=== PATIENT | male | born 1960 | race Two or more races ===

== ENCOUNTER 2019-07-03 09:38 | Emergency (ER) | payer MEDICARE, MEDICAID ==
[~2019-07-03] VITALS: Ht 165.1 cm; Wt 67.1 kg
--- NOTE | 2019-07-03 10:18 | Emergency Room Report ---
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 from previous diabetes and renal disease Denies any vomiting or diarrhea denies any chest pain or shortness of breath Allergies: Coded Allergies: No Known Allergies (Unverified , 07/03/19) Patient History Past Medical History: see triage record Reviewed Nursing Documentation: PMH: Agreed; PSxH: Agreed Nursing Documentation-PMH Hx Hypertension: Yes Hx Diabetes: Yes Hx Dialysis: Yes - , , Wed Review of Systems All Other Systems: negative except mentioned in HPI Physical Exam Vital Signs Date Time Temp Pulse Resp B/P (MAP) Pulse Ox O2 Delivery O2 Flow Rate FiO2 07/03/19 09:59 98.2 77 18 175/91 (119) 99 Room Air Sp02 EP Interpretation: reviewed, normal General Appearance: no apparent distress Head: normocephalic, atraumatic Eyes: bilateral eye PERRL, bilateral eye EOMI ENT: hearing grossly normal, EOM grossly intact Neck: supple Respiratory: lungs clear, no respiratory distress, no retraction Cardiovascular #1: regular rate, rhythm Gastrointestinal: non tender, soft Musculoskeletal: other - Bilateral lower extremity amputations multiple digit amputations as well Neurologic: alert, oriented x3 Psychiatric: normal inspection Skin: no rash Lymphatic: no adenopathy Medical Decision Making Diagnostic Impression: Primary Impression: Symptomatic anemia Additional Impression: blood transion ER Course Given the history exam and presentation patient had extensive blood work initiated hemoglobin level is at 7.1 Patient reports that he has been having some dizziness and weakness Given his complaints blood transfusion is ordered Patient has had multiple transfusions in the past at this time hemodynamically stable Patient will have transfusion via the emergency room and disposition home with close outpatient follow-up with property master Labs Test 07/03/19 10:45 White Blood Count 9.2 K/UL (4.8-10.8) Red Blood Count 1.84 M/UL (4.70-6.10) Hemoglobin 7.1 G/DL (14.2-18.0) Hematocrit 20.6 % (42.0-52.0) Mean Corpuscular Volume 112 FL (80-99) Mean Corpuscular Hemoglobin 38.4 PG (27.0-31.0) Mean Corpuscular Hemoglobin Concent 34.4 G/DL (32.0-36.0) Red Cell Distribution Width 14.7 % (11.6-14.8) Platelet Count 142 K/UL (150-450) Mean Platelet Volume 7.1 FL (6.5-10.1) Neutrophils (%) (Auto) % (45.0-75.0) Lymphocytes (%) (Auto) % (20.0-45.0) Monocytes (%) (Auto) % (1.0-10.0) Eosinophils (%) (Auto) % (0.0-3.0) Basophils (%) (Auto) % (0.0-2.0) Sodium Level 137 MMOL/L (136-145) Potassium Level 4.9 MMOL/L (3.5-5.1) Chloride Level 98 MMOL/L (98-107) Carbon Dioxide Level 23 MMOL/L (21-32) Anion Gap 16 mmol/L (5-15) Blood Urea Nitrogen 66 mg/dL (7-18) Creatinine 9.6 MG/DL (0.55-1.30) Estimat Glomerular Filtration Rate 5.6 mL/min (>60) Glucose Level 198 MG/DL (74-106) Calcium Level 8.4 MG/DL (8.5-10.1) Rhythm Strip Diag. Results EP Interpretation: yes Rate: 77 Rhythm: NSR, no PVC's, no ectopy Last Vital Signs Date Time Temp Pulse Resp B/P (MAP) Pulse Ox O2 Delivery O2 Flow Rate FiO2 07/03/19 09:59 98.2 77 18 175/91 (119) 99 Room Air Status: improved Disposition: HOME, SELF-CARE Condition: Improved Additional Instructions: Patient is provided with the discharge instructions notified to follow up with primary doctor in the next 2-3 days otherwise return to the er with any worsening symptoms. Please note that this report is being documented using [employer] technology. This can lead to erroneous entry secondary to incorrect interpretation by the dictating instrument. Vale Curtis DO Jul 03, 2019 10:18
[2019-07-03 10:35] VITALS: BP 175/91
--- NOTE | 2019-07-03 10:35 | NUR ---
ED Nurse Note: Patient brought to ED from home by son d/t his PCP advising that his Hgb is in the 6's on Wednesday. Patient normally gets dialysis Sat, Wed, Wed. Last dialysis was Sat. Patient AxO x 4, son at bedside.
[2019-07-03 11:21] LABS: ANION GAP 16 mmol/L (5-15); BLOOD UREA NITROGEN 66 mg/dL (7-18); CALCIUM 8.4 MG/DL (8.5-10.1); CARBON DIOXIDE 23 MMOL/L (21-32); CHLORIDE 98 MMOL/L (98-107); CREATININE 9.6 MG/DL (0.55-1.30); POTASSIUM 4.9 MMOL/L (3.5-5.1); SODIUM 137 MMOL/L (136-145)
[2019-07-03 11:26] LABS: HEMATOCRIT 20.6 % (42.0-52.0); HEMOGLOBIN 7.1 G/DL (14.2-18.0); MEAN CORPUSCULAR VOLUME 112 FL (80-99); PLATELET COUNT 142 K/UL (150-450); RED BLOOD COUNT 1.84 M/UL (4.70-6.10); RED CELL DISTRIBUTION WIDTH 14.7 % (11.6-14.8); WHITE BLOOD COUNT 9.2 K/UL (4.8-10.8)
--- NOTE | 2019-07-03 12:55 | NUR ---
ED Nurse Note: Blood transfusion started, 2 RN verification, patient tolerating well. VSS.
[2019-07-03 18:35] VITALS: BP 167/80
--- NOTE | 2019-07-03 18:35 | NUR ---
ER DISCHARGE NOTE: Patient is cleared to be discharged per Dr. Wilkinson, patient tolerated blood transfusions well. No adverse transfusion reactions noted. pt is aox4, on room air, with stable vital signs. pt was given dc and prescription instructions, pt was able to verbalize understanding, pt id band and iv site removed without complications. pt is able to ambulate with steady gait. pt took all belongings.
== END 2019-07-03 18:35 | disposition home or self-care (01) ==
LOC: EMR 15:09
DX: D64.9 Anemia, unspecified (principal); E11.9 Type 2 diabetes mellitus without complications; Z89.612 Acquired absence of left leg above knee; Z89.611 Acquired absence of right leg above knee; I12.9 Hypertensive chronic kidney disease with stage 1 through stage 4 chronic kidney disease, or unspecified chronic kidney disease; E11.22 Type 2 diabetes mellitus with diabetic chronic kidney disease; N18.9 Chronic kidney disease, unspecified; Z99.2 Dependence on renal dialysis
CPT/HCPCS: 36415; 36430; 80048; 85007; 85025; 86850; 86900; 86901; 86920; 93005; 99285; P9016

== ENCOUNTER 2019-07-21 11:24 | Emergency (ER) | payer MEDICARE, MEDICAID ==
[~2019-07-21] VITALS: Ht 167.6 cm; Wt 68.0 kg
--- NOTE | 2019-07-21 11:43 | NUR ---
ED Nurse Note: Patient walked into ER due to abnormal lab, low Hgb level. Patient reports dizziness and feeling weak x 1 week; received blood transfusion 2 weeks ago. Patient awake, alert, oriented x 4. Regular, unlabored breathing noted. Patient reports no N/V or BM with blood or dark colored stool. Bilateral below knee amputation noted and patient using prothesis on BLE and ambulating with cane. Steady gait noted. Last dialysis was yesterday. AV fistual noted on the left upper arm. Placed patient in gown. Bed in lowest position.
[2019-07-21 12:00] VITALS: BP 142/68
[2019-07-21 12:04] LABS: BASOPHILS % (AUTO) 1.1 % (0.0-2.0); EOSINOPHILS % (AUTO) 1.7 % (0.0-3.0); HEMATOCRIT 25.6 % (42.0-52.0); HEMOGLOBIN 8.5 G/DL (14.2-18.0); LYMPHOCYTES % (AUTO) 24.9 % (20.0-45.0); MEAN CORPUSCULAR VOLUME 110 FL (80-99); NEUTROPHILS % (AUTO) 65.4 % (45.0-75.0); PLATELET COUNT 108 K/UL (150-450); RED BLOOD COUNT 2.33 M/UL (4.70-6.10); RED CELL DISTRIBUTION WIDTH 19.4 % (11.6-14.8); WHITE BLOOD COUNT 8.8 K/UL (4.8-10.8)
--- NOTE | 2019-07-21 12:04 | NUR ---
ED Nurse Note: Report given to MAKENNA Pak. Patient resting in bed. Bed in lowest position.
[2019-07-21 12:12] LABS: ANION GAP 13 mmol/L (5-15); BLOOD UREA NITROGEN 27 mg/dL (7-18); CALCIUM 8.1 MG/DL (8.5-10.1); CARBON DIOXIDE 29 MMOL/L (21-32); CHLORIDE 96 MMOL/L (98-107); CREATININE 4.9 MG/DL (0.55-1.30); POTASSIUM 3.9 MMOL/L (3.5-5.1); SODIUM 138 MMOL/L (136-145)
[2019-07-21 12:16] LABS: ALANINE AMINOTRANSFERASE 17 U/L (12-78); ALBUMIN 3.6 G/DL (3.4-5.0); ALBUMIN/GLOBULIN RATIO 0.7 (1.0-2.7); ALKALINE PHOSPHATASE 98 U/L (46-116); ASPARTATE AMINO TRANSFERASE 32 U/L (15-37); BILIRUBIN,TOTAL 0.8 MG/DL (0.2-1.0)
[2019-07-21 12:50] VITALS: BP 136/58
--- NOTE | 2019-07-21 12:51 | Emergency Room Report ---
History of Present Illness General Chief Complaint: Abnormal Labs Source: Patient Present Illness HPI 59-year-old male history of diabetes, hypertension, chronic anemia, end-stage renal disease on dialysis Wednesday presented for possible anemia. Apparently patient had outpatient laboratory studies showing a hemoglobin of 7 so was sent to the ER for further evaluation. Patient transfused approximately 2 to 3 weeks ago. He complained of mild dizziness but otherwise was in his normal state of health. Allergies: Coded Allergies: No Known Allergies (Unverified , 07/03/19) Patient History Past Medical History: see triage record Reviewed Nursing Documentation: PMH: Agreed; PSxH: Agreed Nursing Documentation-PMH Past Medical History: No History, Except For Hx Hypertension: Yes Hx Diabetes: Yes Hx Dialysis: Yes - , , Wed Review of Systems All Other Systems: negative except mentioned in HPI Physical Exam Vital Signs Date Time Temp Pulse Resp B/P (MAP) Pulse Ox O2 Delivery O2 Flow Rate FiO2 07/21/19 11:27 98.2 72 16 121/65 (83) 97 Room Air Sp02 EP Interpretation: reviewed, normal General Appearance: well appearing, no apparent distress Head: normocephalic, atraumatic Eyes: bilateral eye PERRL, bilateral eye EOMI ENT: hearing grossly normal, moist mucus membranes Neck: full range of motion, supple Respiratory: lungs clear, normal breath sounds, no rhonchi, no respiratory distress, no retraction, no wheezing Cardiovascular #1: normal peripheral pulses, regular rate, rhythm, no murmur Gastrointestinal: non tender, soft, non-distended, no guarding Musculoskeletal: other - Bilateral below the knee amputation Neurologic: alert, oriented x3, no focal defects Skin: normal color, warm/dry Medical Decision Making Diagnostic Impression: Primary Impression: Acute on chronic anemia ER Course Patient presented for evaluation of possible anemia. Patient apparently had a hemoglobin of 7.0 on outpatient laboratory studies. Here in our ER patient's hemoglobin was 8.5. Patient's vital signs were stable. He had no chest pain. No shortness of breath. At this time I do not believe patient requires blood transfusion. He was agreeable with the plan. Will be discharged with continued outpatient follow-up and return precautions. Patient discharged in the care of his son. Last Vital Signs Date Time Temp Pulse Resp B/P (MAP) Pulse Ox O2 Delivery O2 Flow Rate FiO2 07/21/19 12:00 98.2 68 16 142/68 100 Room Air Status: unchanged Disposition: HOME, SELF-CARE Condition: Stable Patient Instructions: Anemia, Nonspecific Additional Instructions: Patient is instructed to follow-up with her primary care doctor, primary care clinic or [facility] in 1 to 2 days. Patient instructed to return for any worsening symptoms or concerns. Please note that the documentation in this note was used with [employer] technology. Pleae be advised that this may lead to erroneous text due to misinterpretation by the dictation software Dannie Nielsen M.D. Jul 21, 2019 12:51
[2019-07-21 13:00] VITALS: BP 136/58
--- NOTE | 2019-07-21 13:10 | NUR ---
ER DISCHARGE NOTE: Patient is cleared to be discharged per ERMD Dr LARIOS, pt is aox4, on room air, with stable vital signs. pt was given dc and prescription instructions, pt was able to verbalize understanding, pt id band and iv site removed without complications. pt is able to ambulate with steady gait. pt took all belongings.
== END 2019-07-21 13:42 | disposition home or self-care (01) ==
LOC: EMR 12:30
DX: D64.9 Anemia, unspecified (principal); I12.0 Hypertensive chronic kidney disease with stage 5 chronic kidney disease or end stage renal disease; E11.22 Type 2 diabetes mellitus with diabetic chronic kidney disease; N18.6 End stage renal disease; Z99.2 Dependence on renal dialysis; R42 Dizziness and giddiness
CPT/HCPCS: 36415; 80053; 85025; 85610; 85730; 86850; 86900; 86901; 99284

== ENCOUNTER 2019-08-02 11:22 | Emergency (ER) | payer MEDICARE, MEDICAID ==
[~2019-08-02] VITALS: Ht 165.1 cm; Wt 76.2 kg
[2019-08-02] VITALS (8 sets, daily range): BP systolic 140–169; BP diastolic 66–80
[2019-08-02 13:08] LABS: ANION GAP 14 mmol/L (5-15); BLOOD UREA NITROGEN 38 mg/dL (7-18); CALCIUM 9.6 MG/DL (8.5-10.1); CARBON DIOXIDE 28 MMOL/L (21-32); CHLORIDE 98 MMOL/L (98-107); CREATININE 5.4 MG/DL (0.55-1.30); POTASSIUM 4.1 MMOL/L (3.5-5.1); SODIUM 140 MMOL/L (136-145)
[2019-08-02 13:14] LABS: ALANINE AMINOTRANSFERASE 20 U/L (12-78); ALBUMIN 3.8 G/DL (3.4-5.0); ALBUMIN/GLOBULIN RATIO 0.8 (1.0-2.7); ALKALINE PHOSPHATASE 119 U/L (46-116); ASPARTATE AMINO TRANSFERASE 30 U/L (15-37); BILIRUBIN,TOTAL 0.6 MG/DL (0.2-1.0)
--- NOTE | 2019-08-02 13:57 | Diagnostic Imaging Report ---
Indication: Dyspnea Comparison: 10/31/2013 A single view chest radiograph was obtained. Findings: Platelike atelectasis demonstrated in the perihilar regions bilaterally. There is also suggestion of mild pulmonary vascular congestion. The heart is borderline enlarged. Bones are osteopenic. IMPRESSION: Mild pulmonary vascular congestion may be present. Correlate clinically
[2019-08-02 14:18] LABS: HEMATOCRIT 19.4 % (42.0-52.0); MEAN CORPUSCULAR VOLUME 109 FL (80-99); PLATELET COUNT 91 K/UL (150-450); RED BLOOD COUNT 1.78 M/UL (4.70-6.10); RED CELL DISTRIBUTION WIDTH 17.8 % (11.6-14.8); WHITE BLOOD COUNT 5.4 K/UL (4.8-10.8)
[2019-08-02 14:20] LABS: HEMOGLOBIN 6.8 G/DL (14.2-18.0)
--- NOTE | 2019-08-02 16:17 | Emergency Room Report ---
History of Present Illness General Chief Complaint: Abnormal Labs Source: Patient, EMS Present Illness COVID-19 risk:Travel to affect: No Allergies: Coded Allergies: No Known Allergies (Unverified , 07/03/19) Nursing Documentation-PMH Hx Hypertension: Yes Hx Diabetes: Yes Hx Dialysis: Yes - Tu, Th, Sat Physical Exam Vital Signs Date Time Temp Pulse Resp B/P (MAP) Pulse Ox O2 Delivery O2 Flow Rate FiO2 08/02/19 11:32 97.5 74 18 140/66 (90) 98 Room Air Medical Decision Making Diagnostic Impression: Primary Impression: Acute on chronic anemia Laboratory Tests Test 08/02/19 12:00 08/02/19 13:45 Prothrombin Time 10.5 SEC (9.30-11.50) Prothrombin Time INR 1.0 (0.9-1.1) Activated Partial Thromboplast Time 31 SEC (23-33) Sodium Level 140 MMOL/L (136-145) Potassium Level 4.1 MMOL/L (3.5-5.1) Chloride Level 98 MMOL/L (98-107) Carbon Dioxide Level 28 MMOL/L (21-32) Anion Gap 14 mmol/L (5-15) Blood Urea Nitrogen 38 mg/dL (7-18) H Creatinine 5.4 MG/DL (0.55-1.30) H Estimated Glomerular Filtration Rate 10.9 mL/min (>60) Glucose Level 239 MG/DL (74-106) H Calcium Level 9.6 MG/DL (8.5-10.1) Total Bilirubin 0.6 MG/DL (0.2-1.0) Aspartate Amino Transferase (AST) 30 U/L (15-37) Alanine Aminotransferase (ALT) 20 U/L (12-78) Alkaline Phosphatase 119 U/L (46-116) H Troponin I 0.000 ng/mL (0.000-0.056) Total Protein 8.6 G/DL (6.4-8.2) H Albumin 3.8 G/DL (3.4-5.0) Globulin 4.8 g/dL Albumin/Globulin Ratio 0.8 (1.0-2.7) L White Blood Count 5.4 K/UL (4.8-10.8) Red Blood Count 1.78 M/UL (4.70-6.10) L Hemoglobin 6.8 G/DL (14.2-18.0) *L Hematocrit 19.4 % (42.0-52.0) L Mean Corpuscular Volume 109 FL (80-99) H Mean Corpuscular Hemoglobin 38.2 PG (27.0-31.0) H Mean Corpuscular Hemoglobin Concent 35.0 G/DL (32.0-36.0) Red Cell Distribution Width 17.8 % (11.6-14.8) H Platelet Count 91 K/UL (150-450) L Mean Platelet Volume 7.8 FL (6.5-10.1) Neutrophils (%) (Auto) % (45.0-75.0) Lymphocytes (%) (Auto) % (20.0-45.0) Monocytes (%) (Auto) % (1.0-10.0) Eosinophils (%) (Auto) % (0.0-3.0) Basophils (%) (Auto) % (0.0-2.0) Differential Total Cells Counted 100 Neutrophils % (Manual) 60 % (45-75) Lymphocytes % (Manual) 30 % (20-45) Monocytes % (Manual) 8 % (1-10) Eosinophils % (Manual) 2 % (0-3) Basophils % (Manual) 0 % (0-2) Band Neutrophils 0 % (0-8) Platelet Estimate Decreased L Platelet Morphology Normal Hypochromasia 3+ Anisocytosis 1+ Macrocytosis 1+ Spherocytes 2+ Last Vital Signs Date Time Temp Pulse Resp B/P (MAP) Pulse Ox O2 Delivery O2 Flow Rate FiO2 08/02/19 12:20 97.5 18 140/66 98 Room Air 08/02/19 11:32 74 Referrals: NOT CHOSEN JEANA/,REFERRING (PCP) Malgorzata Wooten DO Aug 02, 2019 16:17
--- NOTE | 2019-08-02 18:18 | NUR ---
ED Nurse Note: Blood transfusion started, patient VSS.
--- NOTE | 2019-08-02 19:05 | NUR ---
HAND-OFF: Report given to Sneha MENSAH.
--- NOTE | 2019-08-02 20:30 | NUR ---
ED Nurse Note: pt does not want to wait for second unit of blood, states he is feeling better and that he wants to go home because he has another appointment to get to. ERMD explained risks of leaving to pt, he is aware, verbalized understanding and still would like to leave. necessary paperwork signed, pt ambulated with steady gait, took all belongings with him.
== END 2019-08-02 23:31 | disposition left against medical advice (07) ==
LOC: EMR 12:29 → EDBEDREQ 18:11 → EMR 23:31
DX: D64.9 Anemia, unspecified (principal); E11.9 Type 2 diabetes mellitus without complications; I10 Essential (primary) hypertension; Z99.2 Dependence on renal dialysis
CPT/HCPCS: 36415; 71045; 80053; 84484; 85007; 85025; 85610; 85730; 86850; 86900; 86901; 86920; 93005; 96360; 96361; 99285; J7030; P9016